=== PATIENT | female | born 1950 ===

== ENCOUNTER 2022-12-26 17:47 | Emergency (ER) | payer MEDICARE, MEDICAID ==
[~2022-12-26] VITALS: Ht 160 cm; Wt 81.8 kg
[2022-12-26 17:55] VITALS: BP 146/77
--- NOTE | 2022-12-26 21:49 | NUR ---
PT REQUESTED TO LEAVE MD INFORMED AMA PAPERS SIGNED MISSION CALLED , BERNICE CALLED 1HR ETA PT PLACED IN FRONT LOBBY
== END 2022-12-26 21:54 | disposition left against medical advice (07) ==
LOC: ER 17:49
DX: F20.9 Schizophrenia, unspecified (principal); E11.9 Type 2 diabetes mellitus without complications; Z88.0 Allergy status to penicillin
CPT/HCPCS: 99281